=== PATIENT | male | born 1985 | race Hispanic/Latino ===

== ENCOUNTER 2024-06-12 19:19 | Emergency (ER) | payer OTHER ==
[~2024-06-12] VITALS: Ht 182.9 cm; Wt 117.9 kg
[2024-06-12 19:40] VITALS: PULSE 75; RESP 16; TEMP 98.5; O2SAT 100
[2024-06-12] MEDS ORDERED: KETOROLAC TROME10 MG PO (19:48)
== END 2024-06-12 19:50 | disposition home or self-care (01) ==
LOC: ER 19:23
DX: S01.01XA Laceration without foreign body of scalp, initial encounter (principal); W20.8XXA Other cause of strike by thrown, projected or falling object, initial encounter; Y92.89 Other specified places as the place of occurrence of the external cause
CPT/HCPCS: 99283

== ENCOUNTER 2024-06-20 16:24 | Emergency (ER) | payer OTHER ==
[~2024-06-20] VITALS: Ht 182.9 cm; Wt 117.9 kg
[~2024-06-20 16:24] MED LIST: KETOROLAC TROME10 MG PO
[2024-06-20 16:42] VITALS: PULSE 87; RESP 17; TEMP 98.1; O2SAT 100
== END 2024-06-20 16:52 | disposition home or self-care (01) ==
LOC: ER 16:45
DX: Z48.02 Encounter for removal of sutures (principal)
CPT/HCPCS: 99282